=== PATIENT | female | born 1960 | race Caucasian/White ===

== ENCOUNTER 2024-04-09 11:11 | Emergency (ER) | payer BC, OTHER ==
[~2024-04-09] VITALS: Ht 177.8 cm; Wt 106.8 kg
[2024-04-09 12:15] VITALS: BP 114/72; PULSE 72; RESP 18; TEMP 98.4; O2SAT 97
[2024-04-09] MEDS: HYDROcodone-ACET 5/325MG TAB PO ONE (13:46)
[2024-04-09] MEDS ORDERED: CEPH500T PO (13:57)
[2024-04-09] MEDS ORDERED: IBUP-1456 PO (13:57)
== END 2024-04-09 14:07 | disposition home or self-care (01) ==
LOC: EDBD 11:11 → ER 11:11
DX: S52.091A Other fracture of upper end of right ulna, initial encounter for closed fracture (principal); R42 Dizziness and giddiness; Z88.2 Allergy status to sulfonamides; W55.12XA Struck by horse, initial encounter; Y93.89 Activity, other specified; Y92.89 Other specified places as the place of occurrence of the external cause; Y99.8 Other external cause status
CPT/HCPCS: 29105; 73080